=== PATIENT | female | born 1955 | race Caucasian/White ===

== ENCOUNTER → 2017-11-13 | Outpatient (CLI) | payer OTHER ==
[~2017-11-13] MED LIST: ACETAMINOPHN-T1 EACH PO; AMBIEN CR12.5 MG PO; CALCIUM 600 +1 EAC1 PO; CARISOPRODOL350 MG PO; CLARITIN10 M3 PO; CYMBALTA60 MG PO; DAILY VITE1 EAC1 PO; Effexor XR PO; FEOSOL325 MG PO; KEPPRA500 MG PO; LIDODERM 5% P1 PATCH TD; MOBIC15 MG PO; Milk Of Magnesia,MOM PO; NORCO 5/3251 TABLET PO; NORVASC5 MG PO; NOSE SPRAY30 ML BOTH NARES; PANTOPRAZOLE SO40 MG PO; PROTONIX40 MG PO; QUETIAPINE FUM100 MG PO; QUETIAPINE FUM400 MG PO; SF 5000 PLUS51 GM DT; ULTRAM50 MG PO; VIIBRYD40 MG PO; VITAMIN D400 UNI1 PO; ZOLPIDEM TART12.5 MG PO
== END | disposition home or self-care (01) ==
LOC: CDC 12:56
DX: Z01.810 Encounter for preprocedural cardiovascular examination (principal); K43.2 Incisional hernia without obstruction or gangrene
CPT/HCPCS: 93000

== ENCOUNTER 2017-11-18 08:30 | Day surgery (SDC) | payer OTHER ==
[~2017-11-18] VITALS: Ht 160 cm; Wt 99.8 kg
[~2017-11-18 08:30] MED LIST changes: -NORCO 5/3251 TABLET PO
[2017-11-18 09:06] VITALS: BP 148/97
[2017-11-18] MEDS ORDERED: NORCO 5/3251 TABLET PO (10:45)
[2017-11-18 12:27] VITALS: BP 131/82
[2017-11-18 13:36] VITALS: BP 139/76
== END 2017-11-18 13:50 | disposition home or self-care (01) ==
LOC: SDC
PROC: 0WUF4JZ Supplement Abdominal Wall with Synthetic Substitute, Percutaneous Endoscopic Approach (ICD-10-PCS; principal; 2017-11-18)
DX: K43.2 Incisional hernia without obstruction or gangrene (principal); Z98.84 Bariatric surgery status; Z85.42 Personal history of malignant neoplasm of other parts of uterus; Z90.710 Acquired absence of both cervix and uterus; Z90.79 Acquired absence of other genital organ(s); Z90.722 Acquired absence of ovaries, bilateral; K21.9 Gastro-esophageal reflux disease without esophagitis; G89.29 Other chronic pain; M19.90 Unspecified osteoarthritis, unspecified site; G40.909 Epilepsy, unspecified, not intractable, without status epilepticus; E66.9 Obesity, unspecified; Z68.39 Body mass index [BMI] 39.0-39.9, adult; E55.9 Vitamin D deficiency, unspecified; Z83.3 Family history of diabetes mellitus; Z88.0 Allergy status to penicillin; Z88.1 Allergy status to other antibiotic agents; Z88.2 Allergy status to sulfonamides
CPT/HCPCS: 88302; C1781; J0131; J1170; J3010; S0020